=== PATIENT | female | born 1990 | race Caucasian/White ===

== ENCOUNTER 2020-05-21 16:54 | Inpatient (IN) | payer OTHER ==
[~2020-05-21] VITALS: Ht 162.6 cm; Wt 59.0 kg
== END 2020-05-27 08:10 | disposition left against medical advice (07) | DRG 394 ==
LOC: ER 16:54 → SEC-K 05-22 16:48 → SURH 05-22 16:48
PROVIDERS: ADMIT Internal Medicine; ATTEND Internal Medicine
PROC: BW21Y0Z Computerized Tomography (CT Scan) of Abdomen and Pelvis using Other Contrast, Unenhanced and Enhanced (ICD-10-PCS; principal; 2020-05-22)
PROC: BW40ZZZ Ultrasonography of Abdomen (ICD-10-PCS; 2020-05-22)
PROC: BW4GZZZ Ultrasonography of Pelvic Region (ICD-10-PCS; 2020-05-26)
DX: I88.0 Nonspecific mesenteric lymphadenitis (principal); N39.0 Urinary tract infection, site not specified; R65.10 Systemic inflammatory response syndrome (SIRS) of non-infectious origin without acute organ dysfunction; D68.9 Coagulation defect, unspecified; A49.3 Mycoplasma infection, unspecified site; Z20.828 Contact with and (suspected) exposure to other viral communicable diseases